=== PATIENT | female | born 2000 | race Two or more races ===

== ENCOUNTER 2024-05-07 14:53 | Emergency (ER) | payer OTHER ==
[~2024-05-07] VITALS: Ht 167.6 cm; Wt 88.5 kg
[2024-05-07] MEDS ORDERED: KETOROLAC TROMETHAMINE 30 MG VIAL IM ONE (15:45)
[2024-05-07] MEDS ORDERED: KETOROLAC TROMETHAMINE 30 MG VIAL ONE (16:19)
== END 2024-05-07 18:14 | disposition home or self-care (01) ==
LOC: ER 14:54
DX: S62.662A Nondisplaced fracture of distal phalanx of right middle finger, initial encounter for closed fracture (principal); X58.XXXA Exposure to other specified factors, initial encounter; Y93.9 Activity, unspecified; Y92.9 Unspecified place or not applicable; Y99.9 Unspecified external cause status